=== PATIENT | male | born 1990 | race Caucasian/White ===

== ENCOUNTER 2018-09-01 18:20 | Emergency (ER) | payer OTHER ==
[2018-09-01 18:52] VITALS: BP 123/71; PULSE 100; TEMP 97.9; BMI 28.1
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
[2018-09-01] MEDS ORDERED: IBUPROFEN 600 MG TABLET (FP) PO ONE ×2 (19:36→19:38)
--- NOTE | 2018-09-01 19:42 | PDOC ---
History of Present Illness - General Chief Complaint: Pain Stated Complaint: PAIN Time Seen by Provider: 09/01/18 19:06 History Source: Patient Exam Limitations: No Limitations - History of Present Illness Initial Comments: 09/01/18 19:42 28 year old male with no significant medical or surgical history presents for pain in nose today. Patient reports multiple injuries to nose leaving nose deformed. States today while standing in the cold felt a cold breeze up in his nose that radiated to his left eye and into his neck. Now requesting referral for treatment of nose. States seen multiple times and told his nose was fractured. Timing/Duration: 4-6 hours Severity: mild Modifying Factors: improves with: medication Associated Symptoms: reports: denies symptoms Aspirin Received prior to arrival: Yes: no aspirin today Past History - Travel Traveled outside of the country in the last 30 days: No - Past Medical History Allergies/Adverse Reactions: Allergies Allergy/AdvReac Type Severity Reaction Status Date / Time No Known Allergies Allergy Verified 09/01/18 18:52 Home Medications: Ambulatory Orders Ibuprofen 600 mg PO TID #21 tablet 09/01/18 COPD: No - Suicide/Smoking/Psychosocial Hx Smoking History: Current every day smoker Have you smoked in the past 12 months: Yes Number of Cigarettes Smoked Daily: 10 Information on smoking cessation initiated: No Hx Alcohol Use: No Drug/Substance Use Hx: No Review of Systems - Review of Systems Able to Perform ROS?: Yes Is the patient limited [place] proficient: No Constitutional: No: Chills, Fever, Loss of Appetite, Malaise, Weakness HEENTM: Yes: Nose Pain, Nose Congestion. No: Throat Pain, Throat Swelling Respiratory: No: Cough, Shortness of Breath, Wheezing, Productive cough Cardiac (ROS): No: Lightheadedness, Palpitations ABD/GI: No: Indigestion : No: Burning, Incontinence Musculoskeletal: No: Back Pain, Joint Pain, Neck Pain Integumentary: No: Bruising Neurological: No: Headache, Numbness, Paresthesia *Physical Exam - Vital Signs Last Vital Signs Temp Pulse Resp BP Pulse Ox 97.9 F 100 H 17 123/71 100 09/01/18 18:50 09/01/18 18:50 09/01/18 18:50 09/01/18 18:50 09/01/18 18:50 - Physical Exam General Appearance: Yes: Nourished, Appropriately Dressed HEENT: positive: EOMI, HIPOLITO, Other (nose deviated to the right, + erythematous turbinates. ) Neck: positive: Supple. negative: Lymphadenopathy (R), Lymphadenopathy (L) Respiratory/Chest: positive: Lungs Clear, Normal Breath Sounds Cardiovascular: positive: Regular Rate, S1, S2 Extremity: positive: Normal Capillary Refill Moderate Sedation - Procedure Monitoring Vital Signs: Procedure Monitoring Vital Signs Temperature 97.9 F 09/01/18 18:50 Pulse Rate 100 H 09/01/18 18:50 Respiratory Rate 17 09/01/18 18:50 Blood Pressure 123/71 09/01/18 18:50 O2 Sat by Pulse Oximetry (%) 100 09/01/18 18:50 Medical Decision Making - Medical Decision Making 09/01/18 19:50 28 year old male with no significant medical or surgical history presents with nose pain today while standing in the cold Plan analgesia referred to ent *DC/Admit/Observation/Transfer Diagnosis at time of Disposition: Pain, nose - Discharge Dispostion Disposition: HOME Condition at time of disposition: Good - Prescriptions Prescriptions: Ibuprofen 600 mg PO TID #21 tablet - Referrals Referrals: Keny Sotomayor MD [Staff Physician] - 24 hours (Please see patient due to multiple injuries to nose, now with deformed nose and intermittent pain ) - Patient Instructions Printed Discharge Instructions: DI for Nose Fracture Additional Instructions: Please call Dr. Sotomayor in the morning for an appointment for further evaluation and treatment of nose Please take ibuprofen every 8 hours as needed for pain Return to emergency room for difficulty breathing - Post Discharge Activity Forms/Work/School Notes: Back to Work
== END 2018-09-01 19:51 | disposition home or self-care (01) ==
LOC: JERFT 18:20
DX: J34.89 Other specified disorders of nose and nasal sinuses (principal); X31.XXXA Exposure to excessive natural cold, initial encounter; Y93.89 Activity, other specified; Y92.89 Other specified places as the place of occurrence of the external cause; Y99.8 Other external cause status
CPT/HCPCS: 99281-25

== ENCOUNTER 2022-02-08 05:38 | Inpatient (IN) | payer OTHER ==
[2022-02-08] MEDS ORDERED: VANCOMYCIN 1 GM in D5W (PRE-DOCKED) 1,000 MG/250 ML IVPB ONE (06:07)
[2022-02-08] MEDS ORDERED: PIPERACILLIN/TAZOB 3.375 GM 3.375 GM in DEXTROSE 5%-WATER - 50 ML IVPB ONE (06:07)
[2022-02-08] MEDS ORDERED: VANCOMYCIN 1 GRAM (PRE-DOCKED) 1,000 MG/250 ML BAG IVPB ONE (06:27)
[2022-02-08 07:14] LABS: CALCIUM 8.9 mg/dL (8.5-10.1)
[2022-02-08 07:16] LABS: ALBUMIN 3.4 g/dl (3.4-5.0)
[2022-02-08 07:19] LABS: CREATININE 0.7 mg/dL (0.55-1.3)
[2022-02-08 07:20] LABS: BILIRUBIN,TOTAL 0.2 mg/dL (0.2-1); TOT PROT 6.6 g/dl (6.4-8.2)
[2022-02-08 07:29] LABS: BASO % 0.6 % (0-2.0); EOS % 5.4 % (0-4.5); HEMATOCRIT 38.6 % (35.4-49); HEMOGLOBIN 13.7 GM/dL (11.7-16.9); LYMPH % 25.8 % (8-40); MCH 34.4 pg (25.7-33.7); MCHC 35.4 g/dl (32.0-35.9); MEAN CELL VOLUME 97.2 fl (80-96); MEAN PLT VOLUME 8.2 fl (7.5-11.1); MONO % 8.5 % (3.8-10.2); NEUT % 59.7 % (42.8-82.8); PLATELET COUNT 264 10^3/uL (134-434); RBC 3.97 M/mm3 (4.00-5.60); RDW 13.3 % (11.9-15.9); WHITE BLOOD COUNT 8.3 K/mm3 (4.0-10.0)
[2022-02-08] MEDS ORDERED: SODIUM CHLORIDE 1,000 ML IV SCH (09:45)
[2022-02-08] MEDS ORDERED: VANCOMYCIN 1 GM in D5W (PRE-DOCKED) 1,000 MG/250 ML IVPB SCH (10:00)
[2022-02-08] MEDS ORDERED: PIPERACILLIN/TAZOB 3.375 GM 3.375 GM in DEXTROSE 5%-WATER - 50 ML IVPB SCH ×2 (10:00→10:30)
[2022-02-08] MEDS ORDERED: PIPERACILLIN/TAZOB 3.375 GM 3.375 GM/50 ML BAG IVPB ONE ×2 (10:02→18:17)
[2022-02-08] MEDS: ENOXAPARIN NA (PORCINE) 40 MG/0.4 ML DISP.SYRIN SQ SCH (10:13)
[2022-02-08] MEDS ORDERED: VANCOMYCIN/WATER FOR INJ (PEG) 1,000 MG/200 ML BAG IVPB ONE (10:30)
[2022-02-08] MEDS ORDERED: ACETAMINOPHEN 1000 MG/100 ML BAG IVPB PRN ×2 (12:27→18:26)
[2022-02-08] MEDS ORDERED: ACETAMINOPHEN INJECTION 100 ML IVPB ONE ×2 (13:29→18:28)
[2022-02-08 18:11] LABS: EPI CELLS 2 /uL (0-25.1); HYALINE CASTS 0 /uL (0-3.1); PH,URINE 5.5 (5.0-8.0); URINE APPEARANCE CLEAR; URINE BACTERIA 1 /uL (0-1359); URINE BILIRUBIN NEGATIVE (NEGATIVE); URINE COLOR YELLOW; URINE GLUCOSE (UA) NEGATIVE (NEGATIVE); URINE KETONE NEGATIVE (NEGATIVE); URINE LEUK ESTERASE NEGATIVE (NEGATIVE); URINE NITRITE NEGATIVE (NEGATIVE); URINE PROTEIN NEGATIVE (NEGATIVE); URINE RBC 71 /uL (0-23.9); URINE UROBILINOGEN 0.2 mg/dL (0.2-1.0); URINE WBC 6 /uL (0-25.8)
[2022-02-08] MEDS: PIPERACILLIN/TAZOB 3.375 GM 3.375 GM in DEXTROSE 5%-WATER - 50 ML IVPB SCH (18:36)
[2022-02-08] MEDS ORDERED: KETOROLAC TROMETHAMINE 30 MG/1 ML VIAL IM ONE (22:10)
[2022-02-08] MEDS ORDERED: KETOROLAC TROMETHAMINE 30 MG/1 ML VIAL IVPUSH ONE (22:45)
[2022-02-09] MEDS ORDERED: PIPERACILLIN/TAZOBACTAM 3.375 GM VIAL IVPB ONE ×2 (01:22→08:52)
[2022-02-09] MEDS: PIPERACILLIN/TAZOB 3.375 GM 3.375 GM in DEXTROSE 5%-WATER - 50 ML IVPB SCH ×2 (01:25→09:11)
[2022-02-09 04:19] VITALS: BMI 24.8
[2022-02-09] MEDS ORDERED: DEXTROSE 5%-WATER - 50 ML IVPB ONE ×2 (08:52→13:17)
[2022-02-09] MEDS: traMADol HCL 50 MG TABLET PO PRN ×2 (08:55→16:58)
[2022-02-09] MEDS: ENOXAPARIN NA (PORCINE) 40 MG/0.4 ML DISP.SYRIN SQ SCH (09:11)
[2022-02-09 11:04] LABS: BASO % 0.4 % (0-2.0); EOS % 5.9 % (0-4.5); HEMATOCRIT 36.7 % (35.4-49); HEMOGLOBIN 13.1 GM/dL (11.7-16.9); LYMPH % 18.8 % (8-40); MCH 34.2 pg (25.7-33.7); MCHC 35.8 g/dl (32.0-35.9); MEAN CELL VOLUME 95.6 fl (80-96); MEAN PLT VOLUME 8.9 fl (7.5-11.1); MONO % 2.6 % (3.8-10.2); NEUT % 72.3 % (42.8-82.8); PLATELET COUNT 231 10^3/uL (134-434); RBC 3.84 M/mm3 (4.00-5.60); RDW 13.2 % (11.9-15.9); WHITE BLOOD COUNT 7.1 K/mm3 (4.0-10.0)
[2022-02-09 11:05] LABS: INR 0.97 (0.83-1.09); PROTHROMBIN TIME (PATIENT) 11.1 SEC (9.7-13.0)
[2022-02-09 11:07] LABS: ACTIVATED PTT 27.2 SECONDS (25.2-36.5)
[2022-02-09 11:24] LABS: ALBUMIN 2.9 g/dl (3.4-5.0); BLOOD UREA NITROGEN 14.2 mg/dL (7-18); PHOSPHOROUS 3.1 mg/dL (2.5-4.9)
[2022-02-09 11:25] LABS: TOT PROT 5.7 g/dl (6.4-8.2)
[2022-02-09 11:27] LABS: BILIRUBIN,TOTAL 0.3 mg/dL (0.2-1); CALCIUM 8.5 mg/dL (8.5-10.1); CREATININE 0.7 mg/dL (0.55-1.3)
[2022-02-09] MEDS: COLLAGENASE CLOSTRIDIUM HIST. 30 GRAMS TUBE TP SCH (13:10)
[2022-02-09] MEDS ORDERED: cefTRIAXone SODIUM 1 GM VIAL ONE (13:17)
[2022-02-09] MEDS: CEFTRIAXONE 1 GM in DEXTROSE 5%-WATER - 50 ML IVPB SCH (13:18)
[2022-02-09] MEDS ORDERED: MELATONIN 5 MG TABLETS PO ONE (22:29)
[2022-02-10] MEDS: traMADol HCL 50 MG TABLET PO PRN ×3 (00:24→20:13)
[2022-02-10] MEDS ORDERED: cefTRIAXone SODIUM 1 GM VIAL ONE (08:50)
[2022-02-10] MEDS ORDERED: DEXTROSE 5%-WATER - 50 ML IVPB ONE (08:51)
[2022-02-10] MEDS: CEFTRIAXONE 1 GM in DEXTROSE 5%-WATER - 50 ML IVPB SCH (09:41)
[2022-02-10] MEDS: ENOXAPARIN NA (PORCINE) 40 MG/0.4 ML DISP.SYRIN SQ SCH (09:42)
[2022-02-10] MEDS: COLLAGENASE CLOSTRIDIUM HIST. 30 GRAMS TUBE TP SCH (09:43)
[2022-02-10] MEDS ORDERED: DIPHENOXYLATE 2.5/ATROPINE.025 1 COMBO TABLET PO ONE (10:13)
[2022-02-10 10:18] LABS: BASO % 0.4 % (0-2.0); EOS % 5.3 % (0-4.5); HEMATOCRIT 37.2 % (35.4-49); HEMOGLOBIN 13.5 GM/dL (11.7-16.9); LYMPH % 34.6 % (8-40); MCH 34.1 pg (25.7-33.7); MCHC 36.3 g/dl (32.0-35.9); MEAN CELL VOLUME 93.9 fl (80-96); MONO % 5.2 % (3.8-10.2); NEUT % 54.5 % (42.8-82.8); PLATELET COUNT 227 10^3/uL (134-434); RBC 3.96 M/mm3 (4.00-5.60); RDW 13.2 % (11.9-15.9); WHITE BLOOD COUNT 6.2 K/mm3 (4.0-10.0)
[2022-02-10 10:41] LABS: ALBUMIN 3.2 g/dl (3.4-5.0); BLOOD UREA NITROGEN 10.1 mg/dL (7-18); CALCIUM 9.5 mg/dL (8.5-10.1)
[2022-02-10 10:44] LABS: CREATININE 0.7 mg/dL (0.55-1.3)
[2022-02-10 10:46] LABS: BILIRUBIN,TOTAL 0.3 mg/dL (0.2-1); TOT PROT 6.4 g/dl (6.4-8.2)
[2022-02-10] MEDS: LACTOBACILLUS ACIDOPHILUS 1 TABLET PO SCH (12:54)
[2022-02-10] MEDS: ACETAMINOPHEN 325 MG TABLET (FP) PO PRN ×2 (15:52→23:52)
[2022-02-11] MEDS: traMADol HCL 50 MG TABLET PO PRN ×2 (05:33→21:44)
[2022-02-11 09:17] LABS: BASO % 0.6 % (0-2.0); EOS % 5.5 % (0-4.5); HEMATOCRIT 40.3 % (35.4-49); HEMOGLOBIN 14.6 GM/dL (11.7-16.9); LYMPH % 32.8 % (8-40); MCH 34.3 pg (25.7-33.7); MCHC 36.1 g/dl (32.0-35.9); MEAN CELL VOLUME 95.2 fl (80-96); MEAN PLT VOLUME 8.1 fl (7.5-11.1); MONO % 6.7 % (3.8-10.2); NEUT % 54.4 % (42.8-82.8); PLATELET COUNT 264 10^3/uL (134-434); RBC 4.24 M/mm3 (4.00-5.60); RDW 13.2 % (11.9-15.9); WHITE BLOOD COUNT 6.4 K/mm3 (4.0-10.0)
[2022-02-11 09:33] LABS: CALCIUM 9.2 mg/dL (8.5-10.1)
[2022-02-11 09:34] LABS: ALBUMIN 3.4 g/dl (3.4-5.0); MAGNESIUM 2.4 mg/dL (1.8-2.4)
[2022-02-11 09:37] LABS: CREATININE 0.7 mg/dL (0.55-1.3)
[2022-02-11 09:38] LABS: BILIRUBIN,TOTAL 0.4 mg/dL (0.2-1); TOT PROT 6.7 g/dl (6.4-8.2)
[2022-02-11] MEDS ORDERED: DEXTROSE 5%-WATER - 50 ML IVPB ONE (09:50)
[2022-02-11] MEDS ORDERED: cefTRIAXone SODIUM 1 GM VIAL ONE (09:50)
[2022-02-11] MEDS: LACTOBACILLUS ACIDOPHILUS 1 TABLET PO SCH (09:52)
[2022-02-11] MEDS: CEFTRIAXONE 1 GM in DEXTROSE 5%-WATER - 50 ML IVPB SCH (09:52)
[2022-02-11] MEDS: ENOXAPARIN NA (PORCINE) 40 MG/0.4 ML DISP.SYRIN SQ SCH (09:52)
[2022-02-11] MEDS: COLLAGENASE CLOSTRIDIUM HIST. 30 GRAMS TUBE TP SCH (10:17)
[2022-02-11] MEDS: ACETAMINOPHEN 325 MG TABLET (FP) PO PRN (15:15)
[2022-02-12] MEDS ORDERED: cefTRIAXone SODIUM 1 GM VIAL ONE (09:29)
[2022-02-12] MEDS ORDERED: DEXTROSE 5%-WATER - 50 ML IVPB ONE (09:29)
[2022-02-12] MEDS: traMADol HCL 50 MG TABLET PO PRN ×2 (09:31→16:49)
[2022-02-12] MEDS: LACTOBACILLUS ACIDOPHILUS 1 TABLET PO SCH (09:32)
[2022-02-12] MEDS: CEFTRIAXONE 1 GM in DEXTROSE 5%-WATER - 50 ML IVPB SCH (09:33)
[2022-02-12] MEDS: ENOXAPARIN NA (PORCINE) 40 MG/0.4 ML DISP.SYRIN SQ SCH (09:35)
[2022-02-12 12:18] LABS: BASO % 0.8 % (0-2.0); EOS % 3.2 % (0-4.5); HEMATOCRIT 46.9 % (35.4-49); HEMOGLOBIN 16.7 GM/dL (11.7-16.9); LYMPH % 28.3 % (8-40); MCH 33.9 pg (25.7-33.7); MCHC 35.6 g/dl (32.0-35.9); MEAN CELL VOLUME 95.2 fl (80-96); MEAN PLT VOLUME 7.8 fl (7.5-11.1); MONO % 6.7 % (3.8-10.2); PLATELET COUNT 331 10^3/uL (134-434); RBC 4.93 M/mm3 (4.00-5.60); RDW 13.2 % (11.9-15.9); WHITE BLOOD COUNT 7.3 K/mm3 (4.0-10.0)
[2022-02-12 12:26] LABS: CALCIUM 9.4 mg/dL (8.5-10.1)
[2022-02-12 12:27] LABS: ALBUMIN 3.8 g/dl (3.4-5.0); BLOOD UREA NITROGEN 18.7 mg/dL (7-18); MAGNESIUM 2.5 mg/dL (1.8-2.4)
[2022-02-12 12:30] LABS: CREATININE 0.9 mg/dL (0.55-1.3)
[2022-02-12 12:32] LABS: BILIRUBIN,TOTAL 0.4 mg/dL (0.2-1); TOT PROT 7.5 g/dl (6.4-8.2)
[2022-02-12] MEDS: COLLAGENASE CLOSTRIDIUM HIST. 30 GRAMS TUBE TP SCH (15:29)
[2022-02-12] MEDS: AMOX TR/POT CLAV 875MG/125MG TABLETS (FP) PO SCH (16:49)
[2022-02-12] MEDS ORDERED: MELATONIN 5 MG TABLETS PO ONE (22:35)
[2022-02-13] MEDS: AMOX TR/POT CLAV 875MG/125MG TABLETS (FP) PO SCH ×2 (08:05→17:17)
[2022-02-13] MEDS: traMADol HCL 50 MG TABLET PO PRN ×2 (08:20→23:01)
[2022-02-13] MEDS: ENOXAPARIN NA (PORCINE) 40 MG/0.4 ML DISP.SYRIN SQ SCH ×2 (10:00→11:40)
[2022-02-13] MEDS: COLLAGENASE CLOSTRIDIUM HIST. 30 GRAMS TUBE TP SCH ×2 (10:17→18:53)
[2022-02-13] MEDS: LACTOBACILLUS ACIDOPHILUS 1 TABLET PO SCH (11:40)
[2022-02-14] MEDS: AMOX TR/POT CLAV 875MG/125MG TABLETS (FP) PO SCH (08:54)
[2022-02-14] MEDS: LACTOBACILLUS ACIDOPHILUS 1 TABLET PO SCH (08:59)
[2022-02-14] MEDS: COLLAGENASE CLOSTRIDIUM HIST. 30 GRAMS TUBE TP SCH (14:18)
[2022-02-14] MEDS: ENOXAPARIN NA (PORCINE) 40 MG/0.4 ML DISP.SYRIN SQ SCH (14:18)
[2022-02-14 14:20] VITALS: BP 127/69; PULSE 65; TEMP 98.2
== END 2022-02-14 17:16 | DRG 383 ==
LOC: JER 05:38 → JERBED 09:22 → J6S 20:30
PROVIDERS: ADMIT Internal Medicine; ATTEND Nurse Practitioner Acute Care
DX: L03.116 Cellulitis of left lower limb (principal); F17.210 Nicotine dependence, cigarettes, uncomplicated; M84.372A Stress fracture, left ankle, initial encounter for fracture; Z59.00 Homelessness unspecified; X58.XXXA Exposure to other specified factors, initial encounter; Y93.89 Activity, other specified; Y92.89 Other specified places as the place of occurrence of the external cause; Y99.9 Unspecified external cause status
CPT/HCPCS: 0241U-QW; 36415; 73610-TC-LT-FY; 73630-TC-LT; 73700-TC-RT; 73718-TC-LT; 80053; 81003; 82962; 83036; 83735; 84100; 84443; 85025; 85610; 85651; 85730; 86140; 87040; 87086; 93005; 93010; 97116-GP; 97162-GP; 99285-25; C9803-CS; U0003; U0005